=== PATIENT | male | born 1970 | race Caucasian/White ===

== ENCOUNTER 2017-02-14 13:37 | Outpatient (CLI) | payer BC ==
--- NOTE | 2017-02-14 15:58 | ULT ---
ULTRASOUND GALLBLADDER RIGHT UPPER QUADRANT 02/14/17 HISTORY: Right upper quadrant pain. COMPARISON: None. FINDINGS: The pancreatic body is unremarkable. The hepatic parenchyma is normal. The liver measures 16.5 cm in length. Portal vein is patent. Antegrade flow. Gallbladder sludge witho ut cholelithiasis. Right kidney measures 10.2 x 4.3 x 6.5 cm. No pericholecystic fluid. Wall thicknes s is normal. Common bile duct measures 5 mm. IMPRESSION: Gallbladder sludge without cholelithiasis or cholecystitis. POS: [facility]
== END 2017-02-14 13:38 | disposition home or self-care (01) ==
LOC: ULT 13:37
PROVIDERS: ATTEND Family Medicine
DX: R10.11 Right upper quadrant pain (principal); K82.8 Other specified diseases of gallbladder
CPT/HCPCS: 76705